=== PATIENT | female | born 1970 | race Caucasian/White ===

== ENCOUNTER 2018-08-27 15:28 | Emergency (ER) | payer MEDICAID ==
[~2018-08-27] VITALS: Ht 157.5 cm; Wt 46.0 kg
[2018-08-27 20:32] LABS: BASOPHILS % 0.6 % (0.0-2.0); EOSINOPHILS % 1.5 % (0.0-5.0); HEMATOCRIT. 33.5 % (36.0-48.0); HEMOGLOBIN. 11.3 g/dL (12.0-16.0); LYMPHOCYTES % 45.2 % (20.0-50.0); MEAN CORPUSCULAR HEMOGLOBIN 31.3 pg (28.0-32.0); MEAN CORPUSCULAR VOLUME 93.1 fL (81.0-99.0); MEAN PLATELET VOLUME 7.8 fl (7.4-10.4); MONOCYTES % 13.3 % (2.0-8.0); NEUTROPHILS % 39.4 % (40.0-76.0); PLATELET 328 x1000/uL (130-400); RED CELL DISTRIBUTION WIDTH 15.6 % (11.6-14.6)
[2018-08-27 20:37] LABS: CHLORIDE 105 mEq/L (98-107)
[2018-08-27 20:40] LABS: ETHANOL BLOOD < 10 mg/dL
[2018-08-27 22:55] LABS: *AMPHETAMINES SCREEN URINE NEGATIVE (NEGATIVE); *BARBITURATES SCREEN URINE NEGATIVE (NEGATIVE)
[2018-08-27 22:56] LABS: *COCAINE SCREEN URINE NEGATIVE (NEGATIVE); CANNABINOID URINE SCREEN NEGATIVE (NEGATIVE); METHADONE URINE SCREEN NEGATIVE (NEGATIVE); OPIATES URINE SCREEN NEGATIVE (NEGATIVE); PHENCYCLIDINE URINE SCREEN NEGATIVE (NEGATIVE)
[2018-08-27 23:12] LABS: *BENZODIAZEPINES SCREEN URINE PRESUMTIVE POSITIVE (NEGATIVE)
[2018-08-28] MEDS ORDERED: TEMAZEPAM 15MG CAPSULE PO ONE (01:45)
[2018-08-28 12:00] VITALS: BP 116/72
== END 2018-08-28 12:36 | disposition home or self-care (01) ==
LOC: ER 16:44
DX: Z59.0 Homelessness (principal); F41.9 Anxiety disorder, unspecified; F32.9 Major depressive disorder, single episode, unspecified; F43.10 Post-traumatic stress disorder, unspecified; F42.9 Obsessive-compulsive disorder, unspecified; G47.00 Insomnia, unspecified; G40.909 Epilepsy, unspecified, not intractable, without status epilepticus; F17.200 Nicotine dependence, unspecified, uncomplicated; Z88.8 Allergy status to other drugs, medicaments and biological substances
CPT/HCPCS: 36415; 80048; 80305; 80307; 80329; 85025; 99283; G0482

== ENCOUNTER 2020-06-12 18:19 | Emergency (ER) | payer MEDICAID ==
[~2020-06-12] VITALS: Ht 162.6 cm; Wt 55.0 kg
[2020-06-12] MEDS ORDERED: KEPPSOL GT (18:24)
[2020-06-12] MEDS ORDERED: LEVETIRACETAM 500MG/5ML CUP PO ONE (19:00)
[2020-06-12] MEDS ORDERED: CLONAZEPAM 1MG TABLET PO ONE (20:00)
[2020-06-12 20:34] LABS: BASOPHILS % 0.5 % (0.0-2.0); EOSINOPHILS % 1.5 % (0.0-5.0); HEMATOCRIT. 34.1 % (36.0-48.0); HEMOGLOBIN. 11.3 g/dL (12.0-16.0); LYMPHOCYTES % 39.1 % (20.0-50.0); MEAN CORPUSCULAR HEMOGLOBIN 32.7 pg (28.0-32.0); MEAN CORPUSCULAR VOLUME 98.7 fL (81.0-99.0); MEAN PLATELET VOLUME 8.5 fl (7.4-10.4); NEUTROPHILS % 47.9 % (40.0-76.0); PLATELET 246 x1000/uL (130-400); RED BLOOD CELL COUNT 3.45 mill/uL (4.2-5.4); RED CELL DISTRIBUTION WIDTH 14.6 % (11.6-14.6)
[2020-06-12 20:35] LABS: CLARITY URINE CLEAR (CLEAR); COLOR URINE YELLOW (YELLOW); KETONES URINE NEGATIVE (NEGATIVE); LEUKOCYTE ESTERASE URINE NEGATIVE (NEGATIVE); NITRITE URINE NEGATIVE (NEGATIVE); OCCULT BLOOD URINE NEGATIVE (NEGATIVE); PROTEIN URINE 1+ (NEGATIVE); SPECIFIC GRAVITY URINE 1.032 (1.005-1.030)
[2020-06-12 20:39] LABS: CHLORIDE 109 mEq/L (98-107)
[2020-06-12 20:43] LABS: ETHANOL BLOOD < 10 mg/dL
[2020-06-12 20:47] LABS: *AMPHETAMINES SCREEN URINE NEGATIVE (NEGATIVE); *BARBITURATES SCREEN URINE NEGATIVE (NEGATIVE); *BENZODIAZEPINES SCREEN URINE NEGATIVE (NEGATIVE); *COCAINE SCREEN URINE NEGATIVE (NEGATIVE)
[2020-06-12 20:48] LABS: CANNABINOID URINE SCREEN NEGATIVE (NEGATIVE); METHADONE URINE SCREEN NEGATIVE (NEGATIVE); OPIATES URINE SCREEN NEGATIVE (NEGATIVE); PHENCYCLIDINE URINE SCREEN NEGATIVE (NEGATIVE)
[2020-06-12 21:55] VITALS: BP 112/77
== END 2020-06-12 22:21 | disposition home or self-care (01) ==
LOC: ER 18:19
DX: R56.9 Unspecified convulsions (principal); F41.9 Anxiety disorder, unspecified; F32.9 Major depressive disorder, single episode, unspecified; F12.10 Cannabis abuse, uncomplicated; F15.10 Other stimulant abuse, uncomplicated; Z91.048 Other nonmedicinal substance allergy status; Z88.8 Allergy status to other drugs, medicaments and biological substances
CPT/HCPCS: 36415; 71045; 80053; 80305; 80320; 81003; 83605; 84484; 85025; 86850; 86900; 93005; 99285; G0480

== ENCOUNTER 2024-03-20 00:08 | Emergency (ER) | payer MEDICAID ==
[~2024-03-20] VITALS: Ht 157.5 cm; Wt 50.0 kg
[~2024-03-20 00:08] MED LIST: BENZ1TAB79 MT; GABA-532 MT; HALO50AM2 IM; KEPPSOL GT; VENL75CA4 MT
[2024-03-20 00:16] VITALS: TEMP 97.8; O2SAT 98
[2024-03-20] MEDS: ACETAMINOPHEN 325MG TABLET PO ONE (03:41)
[2024-03-20 03:53] VITALS: BP 136/82; PULSE 73; RESP 16; O2SAT 98
== END 2024-03-20 04:44 | disposition still patient (30) ==
LOC: ER 00:20
DX: S01.112A Laceration without foreign body of left eyelid and periocular area, initial encounter (principal); F41.9 Anxiety disorder, unspecified; F32.A Depression, unspecified; Z91.048 Other nonmedicinal substance allergy status; Z88.8 Allergy status to other drugs, medicaments and biological substances; Z88.5 Allergy status to narcotic agent; Z98.890 Other specified postprocedural states; Z86.59 Personal history of other mental and behavioral disorders; W22.8XXA Striking against or struck by other objects, initial encounter; Y93.89 Activity, other specified; Y92.89 Other specified places as the place of occurrence of the external cause; Y99.8 Other external cause status
CPT/HCPCS: 12011; 99283

== ENCOUNTER 2024-04-02 15:34 | Emergency (ER) | payer MEDICAID ==
[~2024-04-02] VITALS: Ht 157.5 cm; Wt 49.0 kg
[2024-04-02 15:55] VITALS: O2SAT 100
[2024-04-02 16:05] VITALS: BP 112/68; PULSE 80; RESP 16; TEMP 98; O2SAT 99
== END 2024-04-02 16:40 | disposition home or self-care (01) ==
LOC: ER 15:34
DX: S01.112D Laceration without foreign body of left eyelid and periocular area, subsequent encounter (principal); F41.9 Anxiety disorder, unspecified; F32.A Depression, unspecified; Z48.02 Encounter for removal of sutures; Z98.890 Other specified postprocedural states; Z86.59 Personal history of other mental and behavioral disorders; X58.XXXD Exposure to other specified factors, subsequent encounter
CPT/HCPCS: 99281